=== PATIENT | female | born 1975 | race Caucasian/White ===

== ENCOUNTER 2017-11-13 07:52 | Day surgery (SDC) | payer OTHER ==
[2017-11-13 08:46] LABS: INTERNATIONAL RATION (INR) 0.91; PROTHROMBIN TIME 12.9 SEC (11.4-15.4)
[2017-11-13 08:47] LABS: PARTIAL THROMBOPLASTIN TIME 29.5 SEC (23.5-35.8)
[2017-11-13] MEDS ORDERED: LIDOCAINE 1% INJ-PF (10 MG/ML) 30 ML SDV ONE (09:11)
[2017-11-13] MEDS ORDERED: LIDOCAINE 0.5% INJ-PF (5 MG/ML) 50 ML SDV ONE (09:12)
[2017-11-13 12:59] VITALS: BP 114/75
--- NOTE | 2017-11-13 13:21 | RADIOLOGY REPORT (SQ) ---
EXAM DESCRIPTION: MYELOGRAM CERVICAL COMPLETED DATE/TIME: 11/13/2017 10:12 am REASON FOR STUDY: CERVICAL DISC DEGENERATION M50.30 OTHER CERVICAL DISC DEGENERATION, UNSP CERVICAL REGIO COMPARISON: None. FLUOROSCOPY TIME: 1 minutes 28 seconds 10 images saved to PACS. TECHNIQUE: Fluoroscopic guided cervical myelogram. LIMITATIONS: None. PROCEDURE: After written consent and assessment were obtained, the patient was brought into the fluo roscopy room and placed prone on the table. The patient's lower back was prepped in a sterile fashio n and an entry site was selected under live fluoroscopic guidance. The entry site was anesthetized wi th 1% lidocaine. The spinal needle was advanced through the skin and into the thecal sac at the leve l of L2-3. Contrast was injected into the thecal sac. Following the procedure the needle was remove d and a sterile bandage was placed of the site. CONTRAST: 10 mL Isovue-300. IMAGES ACQUIRED: AP, cross-table lateral and oblique views. FINDINGS: Contrast is present in the thecal sac. IMPRESSION: CERVICAL MYELOGRAM PERFORMED FOR CT MYELOGRAPHY. PLEASE REFER TO THE REPORT OF THE CT M YELOGRAM FOR DETAILED DIAGNOSTIC EVALUATION. COMMENT: Patient medication list reviewed: Yes- Quality ID# [id number]:Eligible professional attests to doc umenting in the medical record they obtained, updated, or reviewed the patient's current medications. . Quality ID 145: Final reports for procedures using fluoroscopy that document radiation exposure chetan sebastian, or exposure time and number of fluorographic images (if radiation exposure indices are not avail able) TECHNICAL DOCUMENTATION: JOB ID: [id number] [facility]- All Rights Reserved
--- NOTE | 2017-11-13 14:30 | RADIOLOGY REPORT (SQ) ---
EXAM DESCRIPTION: CT CERVICAL SPINE WITH COMPLETED DATE/TIME: 11/13/2017 10:17 am REASON FOR STUDY: CERVICAL DISC DEGENRATION M50.30 OTHER CERVICAL DISC DEGENERATION, UNSP CERVICAL REGIO COMPARISON: None. TECHNIQUE: Axial images acquired through the cervical spine post myelography. Images reviewed with lung, soft tissue and bone windows. Reconstructed coronal and sagittal MPR images reviewed. Images stored on PACS. All CT scanners at this facility use dose modulation, iterative reconstruction, and/or weight based d osing when appropriate to reduce radiation dose to as low as reasonably achievable (ALARA). [facility]: Dose Right [facility]: CareDose [facility]: Dose Right [facility]: Teradose 4D [facility]: Smart Mor.sl RADIATION DOSE: CT Rad equipment meets quality standard of care and radiation dose reduction techniq ues were employed. CTDIvol: 19.2 mGy. DLP: 462 mGy-cm. mGy. LIMITATIONS: None. FINDINGS: There is straightening of the lordotic curve. Prevertebral soft tissues are normal. C2-3: No significant stenosis. C3-4: Mild spinal stenosis due to disc bulge. C4-5: Mild spinal stenosis due to disc bulge. C5-6: Moderate spinal stenosis due to disc bulge and osteophyte formation. Moderate -severe neural foraminal narrowing bilaterally due to uncovertebral arthropathy. C6-7: Moderate spinal stenosis. Mild right neural foraminal narrowing. IMPRESSION: Moderate spinal stenosis C5- 6 and C6-7. TECHNICAL DOCUMENTATION: JOB ID: [id number] Quality ID # [id number]: Final reports with documentation of one or more dose reduction techniques (e.g., Au tomated exposure control, adjustment of the mA and/or kV according to patient size, use of iterative reconstruction technique) 2010 [employer]- All Rights Reserved
== END 2017-11-13 12:25 | disposition home or self-care (01) ==
LOC: RAD 07:52
PROVIDERS: ATTEND Pain Medicine Pain Medicine
PROC: B01BYZZ Fluoroscopy of Spinal Cord using Other Contrast (ICD-10-PCS; principal; 2017-11-13)
DX: M50.30 Other cervical disc degeneration, unspecified cervical region (principal); M54.2 Cervicalgia
CPT/HCPCS: 36415; 85610; 85730; 72240; 72126; J3490